=== PATIENT | female | born 2005 | race Caucasian/White ===

== ENCOUNTER → 2025-02-26 11:01 | Outpatient (REF) | payer OTHER, SELFPAY | LOC: RAD 11:01 | PROVIDERS: ATTENDING PHYSICIAN Student in an Organized Health Care Education/Training Program; FAMILY PHYSICIAN Pediatrics | DX: Z51.81 Encounter for therapeutic drug level monitoring (principal); M06.00 Rheumatoid arthritis without rheumatoid factor, unspecified site; D84.9 Immunodeficiency, unspecified; M08.90 Juvenile arthritis, unspecified, unspecified site; Z11.1 Encounter for screening for respiratory tuberculosis; Z11.59 Encounter for screening for other viral diseases | CPT/HCPCS: 73120 ==

== ENCOUNTER 2025-08-19 09:11 | Emergency (ER) | payer OTHER, SELFPAY ==
[2025-08-19 09:15] VITALS: BP 109/75
[2025-08-19 09:45] VITALS: BMI 24.2
--- NOTE | 2025-08-19 09:46 | ED.GENMED ---
History of Present Illness
General
Chief Complaint: Fever
Source: patient
Exam Limitations: none
Time Seen by Provider: 08/19/25 09:34
History of Present Illness
History of Present Illness:
19-year-old female presents with fever sore throat headache neck stiffness vomiting. She started with a sore throat about 4 days ago. This progressed into headache and fever. She vomited this morning. Her brother was sick with a fever last week.
She denies chest or abdominal pain. She has not had anything today for fever. No other complaints at this
Phy Exam
Physical Exam
Physical Exam:
General: Well-appearing female nontoxic no acute respiratory distress
HEENT: Normal cephalic atraumatic posterior pharynx without erythema exudate neck is supple TMs normal no significant adenopathy
Heart: Tachycardic but regular
Lungs: Clear no wheeze
Abdomen is soft no organomegaly nontender
Neurologic exam: No nuchal rigidity or meningeal signs alert and oriented normal gait
Skin is warm no rash
Sepsis
Sepsis Screening
Sepsis Assessment: Sepsis Ruled Out
Sepsis Screen
Sepsis Screen: Sepsis Ruled Out
Date: 08/19/25
Time: 12:42
Course
Orders/Labs/Results
Orders:
Orders
08/19/25 09:42
0.9% Sodium Chloride 1000 ml [Nss] 1,000 ml IV BOLUS
Acetaminophen [Tylenol] 1,000 mg PO NOW STA
08/19/25 09:47
COVID-19 Antigen Urgent
Source: Nasal Swab
Complete Blood Count/With Diff Urgent
Comprehensive Metabolic Panel Urgent
Monotest Urgent
Influenza A+B Rapid Molecular Urgent
[facility] Source: Nasal Swab
Specimen Description:
08/19/25 09:50
Rapid Strep Group A Urgent
[facility] Source: Throat/Pharynx
Specimen Description:
Date Specimen was Collected: 08/19/25
Time Specimen was Collected: 09:46
Throat Culture [Throat Culture, Comprehensive] Urgent
[facility] Source: Throat/Pharynx
Specimen Description:
Date Specimen was Collected: 08/19/25
Time Specimen was Collected:
Abnormal Lab Results
08/19/25
09:47
WBC 11.9 H 10^3/uL
(4.8-10.8)
RBC 4.03 L 10^6/uL
(4.20-5.40)
Hct 36.3 L %
(37.0-47.0)
MCH 31.5 H pg
(27.0-31.0)
Absolute Neuts (auto) 9.9 H 10^3/uL
(1.4-6.5)
Absolute Lymphs (auto) 1.1 L 10^3/uL
(1.2-3.4)
Absolute Monos (auto) 0.8 H 10^3/uL
(0.1-0.6)
Neutrophils % 83.6 H %
(42.2-75.2)
Lymphocytes % 9.3 L %
(20.5-51.1)
Total Bilirubin 1.4 H mg/dl
(0.2-1.3)
08/19/25 09:47
08/19/25 09:47
Vital Signs
Initial and Last Documented VS:
Initial Vital Signs
Temp Pulse Resp BP Pulse Ox
102.2 F H 129 18 109/75 98
08/19/25 09:15 08/19/25 09:15 08/19/25 09:15 08/19/25 09:15 08/19/25 09:15
Last Documented Vital Signs
Temp Pulse Resp BP Pulse Ox
102.2 F H 78 22 93/62 97
08/19/25 09:15 08/19/25 12:00 08/19/25 12:00 08/19/25 12:00 08/19/25 12:00
MDM/Problems Addressed
Differential Diagnosis Includes:
Patient with above-mentioned symptoms. Consider viral illness such as COVID flu or strep throat. These tests are pending. Will also check for mono. Patient is febrile and tachycardic. Will treat with Tylenol and fluids. There is no meningeal
signs on exam. Lumbar puncture was discussed with patient and father in room however at this point I do not think it is indicated.
*Pulse Oximetry
SaO2: 98
Oxygen Mode of Delivery: Room air
Patient hypoxic: no
*Critical Care Note
Total Time (30-74mins, 75-104mins- exclusive of procedures): Not Applicable
Update Note
Update Note:
Workup here negative for COVID flu strep and mono. Still suspect underlying viral illness. Vital signs improved temperature has decreased she is feeling improved. Patient has been sick in some fashion for 4 days. Do not suspect she has
meningitis given the duration of her illness. Also no meningeal signs on exam upon reassessment. Explained this thought process. Family in agreement.
ED Attending Note
-
Portions of this chart may have been created with voice recognition software.� Occasional wrong word or��sound alike� substitutions may have occurred due to the inherent limitations of voice recognition software.
Discharge Plan
Departure
Patient Disposition: Home (Routine Discharge)
Date of Disposition: 08/19/25
Time of Disposition: 12:40
Patient with high blood pressure during this ER visit?: No
Discharge Problem:
URI (upper respiratory infection)
Instructions: Viral Syndrome (DC)
Referrals:
Getachew Pollack MD [Family Provider, Family Practice]
Activity Restrictions/Additional Instructions:
Rest. Drink plenty of fluids. Use ibuprofen or Tylenol for fever. Return here for worsening symptoms otherwise
Interventions
Interventions:
*Risk Screen - Suicide Last Done: 08/19/25 09:15
*General Assessment Last Done: 08/19/25 09:15
*Neglect/Abuse Screening Last Done: 08/19/25 09:15
[facility] Fall Risk Assessment Tool Last Done: 08/19/25 09:56
Discharge Date and Time
Print Language: DANISH
[2025-08-19] MEDS: TYLENOL 1000 MG PO (09:49)
[2025-08-19] MEDS: NSS 1000 IV (09:49)
[2025-08-19 10:00] VITALS: BP 105/71
[2025-08-19 10:05] LABS: Hematocrit 36.3 % (37.0-47.0); Hemoglobin 12.7 g/dL (12.0-16.0); Mean Corp Hgb Conc. 35.0 g/dL (33.0-37.0); Mean Corpuscular Volume 90.1 fL (81.0-99.0); Nucleated Red Blood Cells % 0 %; Platelet Count 206 10^3/uL (130-400); Red Cell Dist. Width 11.7 % (11.5-14.5)
[2025-08-19 10:15] LABS: ALT (SGPT) 16 U/L (0-35); AST (SGOT) 23 U/L (14-36); Albumin 4.7 g/dl (3.5-5.0); Alkaline Phosphatase 57 U/L (38-126); Blood Urea Nitrogen 12 mg/dl (7-17); Calcium 9.3 mg/dl (8.4-10.2); Carbon Dioxide 27 mmol/L (22-30); Chloride 102 mmol/L (98-107); Estimated Creatinine Clearance 104 ml/min; Glucose 94 mg/dl (70-99); Potassium 3.5 mmol/L (3.5-5.1); Sodium 136 mmol/L (135-145); Total Protein 7.6 g/dl (6.3-8.2); eGFR > 60.00
[2025-08-19 10:25] LABS: COVID-19 Antigen Negative (Negative)
[2025-08-19 11:00] VITALS: BP 96/62
[2025-08-19 12:00] VITALS: BP 93/62
== END 2025-08-19 12:58 | disposition home or self-care (01) ==
LOC: EMR 09:11
PROVIDERS: Physician Assistant; EMERGENCY PHYSICIAN Emergency Medicine; FAMILY PHYSICIAN Family Medicine
DX: J06.9 Acute upper respiratory infection, unspecified (principal); J02.9 Acute pharyngitis, unspecified; Z11.52 Encounter for screening for COVID-19
CPT/HCPCS: 96360; 99284; 80053; 85025; 86308; 87070; 87502; 87811; 87880